=== PATIENT | female | born 1965 | race Caucasian/White ===

== ENCOUNTER 2022-11-25 13:02 | Emergency (ER) | payer OTHER, SELFPAY ==
[2022-11-25] VITALS (13 sets, daily range): BP systolic 103–134; BP diastolic 65–83; PULSE 68–83; RESP 16; TEMP 36.9; O2SAT 97–100; BMI 27.4
--- NOTE | 2022-11-25 13:31 | CRLHL7_ITS ---
For Patients: As a result of the Century Cures Act, medical imaging exams and procedure reports are released immediately into your electronic medical record. You may view this report before your referring provider. If you have questions, please contact your health care provider. INDICATION: Shortness of breath. COMPARISON: None available. FINDINGS: PA and lateral views of the chest were obtained. The lungs are clear. No focal or diffuse infiltrates are present. The heart is normal in size. The mediastinum is normal in appearance. The osseous structures are normal in appearance for the patient`s age. IMPRESSION: Normal chest 2 views. Dictated by Sheldon Ruiz MD @ 11/25/2022 3:07:50 PM (Electronically Signed)
--- NOTE | 2022-11-25 13:44 | ED_ITS ---
HPI - General Adult General Chief complaint: Chest Pain Stated complaint: left chest discomfort Time Seen by Provider: 11/25/22 13:07 Source: patient Mode of arrival: ambulatory Limitations: no limitations History of Present Illness HPI narrative: 57-year-old female coming in today complaining of left-sided chest pain going on for 3 days. Started last Friday with significant discomfort over the left lateral chest. Nothing seems to make it better or worse. She describes it as a burning ache. She states gotten better over the last couple days with still present. Is unchanged with deep inspiration, does not change with eating. She denies any coughing, fevers or chills. She denies any rashes that she is aware. She denies any recent travel or long car rides. She denies any recent surgeries. She has no personal or family history of blood clots that she is aware of. She denies any urinary symptoms. No abdominal pain. No changes in her appetite. She is on simvastatin and Lexapro, no new medications. Related Data Home Medications Medication Instructions Recorded Confirmed escitalopram oxalate 10 mg tablet 10 mg PO DAILY 11/25/22 11/25/22 simvastatin 40 mg tablet 40 mg PO QPM 11/25/22 11/25/22 Allergies Allergy/AdvReac Type Severity Reaction Status Date / Time No Known Drug Allergies Allergy Verified 11/25/22 13:15 Review of Systems Status of ROS: Reports: 10 or more systems reviewed and unremarkable except as noted in History and below [facility] Social History Smoking Status: Never smoker Do you use any of these nicotine containing products: None Second hand tobacco smoke exposure: No How often do you have a drink containing alcohol: 2-3 times a week How many standard drinks containing alcohol do you have on a typical day: 1 or 2 How often do you have six or more drinks on one occasion: Never AUDIT-C Alcohol total score: 3 Non-prescribed substance use: denies use service: No Exam Narrative: Exam Narrative: Well-nourished well-developed patient in no acute distress. Alert and oriented. Answers questions appropriately. Mood and affect are appropriate. Thoughts are goal oriented and rational. No tangential or magical thinking noted. Patient speaks in full sentences without needing to catch her breath. Patient points to deep in the lateral left breast as the location of her pain HEENT: Normocephalic atraumatic. Pupils are equally round reactive to light. Extraocular muscles are intact. Conjunctivae are moist without any icterus noted. Moist mucous membranes. Posterior pharynx is normal. Neck is soft without any lymphadenopathy or thyromegaly. No masses are appreciated. Cardiovascular: Heart is regular rate and rhythm S1 and S2 are present without any murmurs. Lungs: Clear to auscultation bilaterally no wheezes rhonchi or rales are appreciated. Patient takes deep breaths without any discomfort. Pain is not reproduced on palpation of the chest wall. Abdomen: Soft and nontender nondistended with normal bowel sounds. No guarding or rebound. No masses or organomegaly appreciated. No CVA tenderness. Extremities: Bilateral lower extremities are without edema. Normal DP and PT pulses. Skin: Well perfused without any obvious rashes. Const: Vital Signs, click to edit/add: Vital Signs - 24 hr 11/25/22 13:08 11/25/22 13:15 11/25/22 13:16 Temperature 98.5 F Pulse Rate 83 75 Pulse Rate [Pulse Oximeter] 77 Respiratory Rate 16 Blood Pressure 134/83 Blood Pressure [Le ft Upper Arm] 134/83 Pulse Oximetry 97 100 98 Oxygen Delivery Me od Room Air 11/25/22 13:30 11/25/22 13:31 11/25/22 13:32 Temperature Pulse Rate 78 80 Pulse Rate [Pulse Oximeter] Respiratory Rate Blood Pressure 130/76 Blood Pressure [Le ft Upper Arm] Pulse Oximetry 98 98 97 Oxygen Delivery Me thod 11/25/22 14:00 11/25/22 14:02 11/25/22 14:30 Temperature Pulse Rate 68 68 74 Pulse Rate [Pulse Oximeter] Respiratory Rate Blood Pressure 103/65 Blood Pressure [Le ft Upper Arm] Pulse Oximetry 97 97 98 Oxygen Delivery Dc thod 11/25/22 14:31 11/25/22 14:32 11/25/22 15:00 Temperature Pulse Rate 75 70 74 Pulse Rate [Pulse Oximeter] Respiratory Rate Blood Pressure 117/72 Blood Pressure [Le ft Upper Arm] Pulse Oximetry 99 100 98 Oxygen Delivery Dc thod 11/25/22 15:02 Temperature Pulse Rate 73 Pulse Rate [Pulse Oximeter] Respiratory Rate Blood Pressure 127/77 Blood Pressure [Le ft Upper Arm] Pulse Oximetry 99 Oxygen Delivery Me thod Course Course Hospital Course: Labs were entirely normal, chest x-ray read by me, was normal. EKG, read by me, showed normal sinus rhythm with a pulse of 80. Vital Signs Vital signs: Initial Vital Signs Temperature 98.5 F 11/25/22 13:08 Temperature Source Temporal Artery Scan 11/25/22 13:08 Pulse Rate 77 11/25/22 13:08 Pulse Rhythm Regular 11/25/22 13:08 Pulse Strength 3+ Normal 11/25/22 13:08 Respiratory Rate 16 11/25/22 13:08 Blood Pressure 134/83 11/25/22 13:08 Blood Pressure Mean 100 11/25/22 13:08 Blood Pressure Position Semi-Fowlers 11/25/22 13:08 Pulse Oximetry 97 11/25/22 13:08 Oxygen Delivery Method Room Air 11/25/22 13:08 Vital Signs Temperature 98.5 F 11/25/22 13:08 Pulse Rate 77 11/25/22 13:08 Respiratory Rate 16 11/25/22 13:08 Blood Pressure 134/83 11/25/22 13:08 Pulse Oximetry 97 11/25/22 13:08 Oxygen Delivery Method Room Air 11/25/22 13:08 Temperature 98.5 F 11/25/22 13:08 Pulse Rate 73 11/25/22 15:02 Respiratory Rate 16 11/25/22 13:08 Blood Pressure 127/77 11/25/22 15:02 Pulse Oximetry 99 11/25/22 15:02 Oxygen Delivery Method Room Air 11/25/22 13:[address] [facility] Narrative Medical decision making narrative: 57-year-old female with left-sided chest pain. Differential diagnosis at this time include early shingles, musculoskeletal discomfort, breast inflammation. With normal vital signs and a negative D-dimer do not think this represents a PE, with normal EKG and troponin and a story that does not fit coronary artery disease I do not think this is coronary artery disease. Other diagnoses considered include pneumonia, pneumothorax-no evidence of these things today. No evidence of pericarditis or myocarditis. Unusual location for GERD. At this time we discussed symptomatic treatment and signs to look for of all vein disease. Patient will follow-up with primary care loose week. Lab Data Lab results reviewed: Yes I reviewed the patient's lab results Labs: Lab Results 11/25/22 Range/Units 14:00 WBC 5.10 (4.50-11.00) K/uL RBC 4.08 (4.00-5.20) m/uL Hgb 12.7 (12.0-16.0) gm/dL Hct 38.3 (33.0-51.0) % MCV 94 (80-100) fL MCH 31 (26-34) pg MCHC 33 (32-36) gm/dL RDW Coeff of Anne 11.8 (11.5-15.5) % Plt Count 205 (140-440) K/uL Neut % (Auto) 57.0 (42.0-72.0) % Lymph % (Auto) 32.4 (20-44) % [place] % (Auto) 9.2 (0.0-11.0) % Eos % (Auto) 1.0 (0.0-7.0) % Baso % (Auto) 0.4 (0.0-3.0) % Neut # (Auto) 2.91 (1.7-7.0) K/uL Lymph # (Auto) 1.65 (0.90-2.90) K/uL [place] # (Auto) 0.50 (0.00-0.90) K/UL Eos # (Auto) 0.05 (0.00-0.50) K/uL Baso # (Auto) 0.02 (0.00-0.30) K/uL D-Dimer Quant (PE/DVT) < 0.27 (0.00-0.50) ug/ml Sodium 140 (135-149) mmol/L Potassium 3.9 (3.6-5.1) mmol/L Chloride 106 (96-114) mmol/L Carbon Dioxide 24 (20-32) mmol/L BUN 17 (7-30) mg/dL Creatinine 0.6 (0.5-1.5) mg/dL Estimated Creat Clear 83.79 Estimated GFR 106 ml/min Glucose 93 (60-115) mg/dL Lactate 1.1 (0.5-1.9) mmol/L Calcium 9.7 (8.4-10.6) mg/dL Total Bilirubin 0.4 (0.1-1.5) mg/dL Direct Bilirubin 0.0 (0.0-0.5) mg/dL AST 27 (12-35) U/L ALT 31 (4-35) U/L Alkaline Phosphatase 62 (40-150) U/L Troponin I < 0.01 L (0.01-0.04) ng/mL C-Reactive Protein < 0.5 L (0.5-1.0) mg/dL Total Protein 7.8 (6.0-8.3) g/dL Albumin 4.6 (3.3-5.0) g/dL Lipase 94 (23-300) U/L Imaging Data Chest x-ray: Attestation: I have reviewed the pertinent imaging results. Radiologist's impression: PA and lateral views of the chest were obtained. The lungs are clear. No focal or diffuse infiltrates are present. The heart is normal in size. The mediastinum is normal in appearance. The osseous structures are normal in appearance for the patient`s age. IMPRESSION: Normal chest 2 views. ECG Data Attestation: I personally reviewed and interpreted this ECG as follows: Discharge Plan Discharge Clinical Impression: Atypical chest pain Patient Disposition: Home, Self-Care Condition: Stable Additional Instructions: Recommend you follow-up with primary care provider this week. Return to the ER if pain is getting worse or you develop new symptoms. Prescriptions: No Action simvastatin 40 mg tablet 40 mg PO QPM escitalopram oxalate 10 mg tablet 10 mg PO DAILY Follow Up/Referrals: Kellie Quiñones MD [Primary Care Provider] - Stand Alone Forms: [employer] Info Instructions
[2022-11-25 14:07] LABS: Lactate* 1.1 mmol/L (0.5-1.9)
[2022-11-25 14:08] LABS: Basophils Absolute Auto 0.02 K/uL (0.00-0.30); Basophils Percent Auto 0.4 % (0.0-3.0); Eosinophils Absolute Auto 0.05 K/uL (0.00-0.50); Hematocrit 38.3 % (33.0-51.0); Hemoglobin* 12.7 gm/dL (12.0-16.0); Lymphocytes Absolute Auto 1.65 K/uL (0.90-2.90); Lymphocytes Percent Auto 32.4 % (20-44); Mean Corpuscular HGB Conc 33 gm/dL (32-36); Mean Corpuscular Hemoglobin 31 pg (26-34); Mean Corpuscular Volume 94 fL (80-100); Monocytes Percent Auto 9.2 % (0.0-11.0); Neutrophils Absolute Auto 2.91 K/uL (1.7-7.0); Platelet Count* 205 K/uL (140-440); RDW Coefficient of Variation % 11.8 % (11.5-15.5); Red Blood Count 4.08 m/uL (4.00-5.20)
[2022-11-25 14:09] LABS: Slide Review Reflex No
[2022-11-25 14:22] LABS: Albumin* 4.6 g/dL (3.3-5.0); Chloride* 106 mmol/L (96-114); Sodium* 140 mmol/L (135-149)
[2022-11-25 14:23] LABS: Potassium* 3.9 mmol/L (3.6-5.1)
[2022-11-25 14:25] LABS: Carbon Dioxide* 24 mmol/L (20-32); Creatinine* 0.6 mg/dL (0.5-1.5); Est. Creatinine Clearance* 83.79; Estimated Glomerular Filt Rate 106 ml/min
[2022-11-25 14:26] LABS: Alanine Aminotransferase* 31 U/L (4-35); Alkaline Phosphatase* 62 U/L (40-150); Aspartate Amino Transferase* 27 U/L (12-35); Bilirubin Total* 0.4 mg/dL (0.1-1.5); Blood Urea Nitrogen* 17 mg/dL (7-30); Calcium* 9.7 mg/dL (8.4-10.6); Glucose* 93 mg/dL (60-115); Lipase* 94 U/L (23-300); Total Protein* 7.8 g/dL (6.0-8.3)
[2022-11-25 14:27] LABS: D Dimer Quantitative* < 0.27 ug/ml (0.00-0.50)
[2022-11-25 14:39] LABS: C Reactive Protein* < 0.5 mg/dL (0.5-1.0); Troponin I* < 0.01 ng/mL (0.01-0.04)
--- NOTE | 2022-11-25 15:16 | ED.GENADULT ---
HPI - General Adult General Chief complaint: Chest Pain Stated complaint: left chest discomfort Time Seen by Provider: 11/25/22 13:07 Source: patient Mode of arrival: ambulatory Limitations: no limitations Related Data Home Medications Medication Instructions Recorded Confirmed escitalopram oxalate 10 mg tablet 10 mg PO DAILY 11/25/22 11/25/22 simvastatin 40 mg tablet 40 mg PO QPM 11/25/22 11/25/22 Allergies Allergy/AdvReac Type Severity Reaction Status Date / Time No Known Drug Allergies Allergy Verified 11/25/22 13:15 PFSH PFS Social History Smoking Status: Never smoker Do you use any of these nicotine containing products: None Second hand tobacco smoke exposure: No How often do you have a drink containing alcohol: 2-3 times a week How many standard drinks containing alcohol do you have on a typical day: 1 or 2 How often do you have six or more drinks on one occasion: Never AUDIT-C Alcohol total score: 3 Non-prescribed substance use: denies use service: No Exam Const: Vital Signs, click to edit/add: Vital Signs - 24 hr 11/25/22 13:08 11/25/22 13:15 11/25/22 13:16 Temperature 98.5 F Pulse Rate 83 75 Pulse Rate [Pulse Oximeter] 77 Respiratory Rate 16 Blood Pressure 134/83 Blood Pressure [Le ft Upper Arm] 134/83 Pulse Oximetry 97 100 98 Oxygen Delivery Me thod Room Air 11/25/22 13:30 11/25/22 13:31 11/25/22 13:32 Temperature Pulse Rate 78 80 Pulse Rate [Pulse Oximeter] Respiratory Rate Blood Pressure 130/76 Blood Pressure [Le ft Upper Arm] Pulse Oximetry 98 98 97 Oxygen Delivery Me thod 11/25/22 14:00 11/25/22 14:02 11/25/22 14:30 Temperature Pulse Rate 68 68 74 Pulse Rate [Pulse Oximeter] Respiratory Rate Blood Pressure 103/65 Blood Pressure [Le ft Upper Arm] Pulse Oximetry 97 97 98 Oxygen Delivery Me thod 11/25/22 14:31 11/25/22 14:32 11/25/22 15:00 Temperature Pulse Rate 75 70 74 Pulse Rate [Pulse Oximeter] Respiratory Rate Blood Pressure 117/72 Blood Pressure [Le ft Upper Arm] Pulse Oximetry 99 100 98 Oxygen Delivery Me thod 11/25/22 15:02 Temperature Pulse Rate 73 Pulse Rate [Pulse Oximeter] Respiratory Rate Blood Pressure 127/77 Blood Pressure [Le ft Upper Arm] Pulse Oximetry 99 Oxygen Delivery Me thod Course Course Hospital Course: Labs were entirely normal, chest x-ray read by me, was normal. EKG, read by me, showed normal sinus rhythm with a pulse of 80. Vital Signs Vital signs: Initial Vital Signs Temperature 98.5 F 11/25/22 13:08 Temperature Source Temporal Artery Scan 11/25/22 13:08 Pulse Rate 77 11/25/22 13:08 Pulse Rhythm Regular 11/25/22 13:08 Pulse Strength 3+ Normal 11/25/22 13:08 Respiratory Rate 16 11/25/22 13:08 Blood Pressure 134/83 11/25/22 13:08 Blood Pressure Mean 100 11/25/22 13:08 Blood Pressure Position Semi-Fowlers 11/25/22 13:08 Pulse Oximetry 97 11/25/22 13:08 Oxygen Delivery Method Room Air 11/25/22 13:08 Vital Signs Temperature 98.5 F 11/25/22 13:08 Pulse Rate 77 11/25/22 13:08 Respiratory Rate 16 11/25/22 13:08 Blood Pressure 134/83 11/25/22 13:08 Pulse Oximetry 97 11/25/22 13:08 Oxygen Delivery Method Room Air 11/25/22 13:08 Temperature 98.5 F 11/25/22 13:08 Pulse Rate 73 11/25/22 15:02 Respiratory Rate 16 11/25/22 13:08 Blood Pressure 127/77 11/25/22 15:02 Pulse Oximetry 99 11/25/22 15:02 Oxygen Delivery Method Room Air 11/25/22 13:08 Medical Decision Making Lab Data Labs: Lab Results 11/25/22 Range/Units 14:00 WBC 5.10 (4.50-11.00) K/uL RBC 4.08 (4.00-5.20) m/uL Hgb 12.7 (12.0-16.0) gm/dL Hct 38.3 (33.0-51.0) % MCV 94 (80-100) fL MCH 31 (26-34) pg MCHC 33 (32-36) gm/dL RDW Coeff of Anne 11.8 (11.5-15.5) % Plt Count 205 (140-440) K/uL Neut % (Auto) 57.0 (42.0-72.0) % Lymph % (Auto) 32.4 (20-44) % [place] % (Auto) 9.2 (0.0-11.0) % Eos % (Auto) 1.0 (0.0-7.0) % Baso % (Auto) 0.4 (0.0-3.0) % Neut # (Auto) 2.91 (1.7-7.0) K/uL Lymph # (Auto) 1.65 (0.90-2.90) K/uL [place] # (Auto) 0.50 (0.00-0.90) K/UL Eos # (Auto) 0.05 (0.00-0.50) K/uL Baso # (Auto) 0.02 (0.00-0.30) K/uL D-Dimer Quant (PE/DVT) < 0.27 (0.00-0.50) ug/ml Sodium 140 (135-149) mmol/L Potassium 3.9 (3.6-5.1) mmol/L Chloride 106 (96-114) mmol/L Carbon Dioxide 24 (20-32) mmol/L BUN 17 (7-30) mg/dL Creatinine 0.6 (0.5-1.5) mg/dL Estimated Creat Clear 83.79 Estimated GFR 106 ml/min Glucose 93 (60-115) mg/dL Lactate 1.1 (0.5-1.9) mmol/L Calcium 9.7 (8.4-10.6) mg/dL Total Bilirubin 0.4 (0.1-1.5) mg/dL Direct Bilirubin 0.0 (0.0-0.5) mg/dL AST 27 (12-35) U/L ALT 31 (4-35) U/L Alkaline Phosphatase 62 (40-150) U/L Troponin I < 0.01 L (0.01-0.04) ng/mL C-Reactive Protein < 0.5 L (0.5-1.0) mg/dL Total Protein 7.8 (6.0-8.3) g/dL Albumin 4.6 (3.3-5.0) g/dL Lipase 94 (23-300) U/L Discharge Plan Discharge Clinical Impression: Atypical chest pain Patient Disposition: Home, Self-Care Condition: Stable Additional Instructions: Recommend you follow-up with primary care provider this week. Return to the ER if pain is getting worse or you develop new symptoms. Prescriptions: No Action simvastatin 40 mg tablet 40 mg PO QPM escitalopram oxalate 10 mg tablet 10 mg PO DAILY Follow Up/Referrals: Kellie Quiñones MD [Primary Care Provider] - Stand Alone Forms: [employer] Info Instructions
== END 2022-11-25 15:30 | disposition home or self-care (01) ==
PROVIDERS: Emergency Provider Family Medicine; PCP Family Medicine
DX: R07.9 Chest pain, unspecified (principal)
CPT/HCPCS: 36415; 71046; 80048; 80076; 83605; 83690; 84484; 85025; 85379; 86140; 94761; 99284